=== PATIENT | female | born 1990 | race African-American/Black ===

== ENCOUNTER 2016-12-02 05:01 | Inpatient (IN) | payer MEDICAID ==
[2016-12-01 10:47] LABS: ABSOLUTE LYMPHOCYTES (AUTO) 1.6 10^3/uL (0.5-4.7); ABSOLUTE MONOCYTES (AUTO) 0.7 10^3/uL (0.1-1.4); ABSOLUTE NEUT (AUTO) 5.2 10^3/uL (1.7-8.2); BASOPHILS % (AUTO) 0.5 % (0-2); EOSINOPHILS % (AUTO) 0.7 % (0-6); HEMOGLOBIN 11.2 g/dL (12.0-15.5); HGB HCT DIFFERENCE -0.4; LYMPHOCYTES % (AUTO) 20.8 % (13-45); MEAN CORPUSCULAR HEMOGLOBIN 27.9 pg (27.0-33.4); MEAN CORPUSCULAR HGB CONC 32.9 g/dL (32.0-36.0); MEAN CORPUSCULAR VOLUME 85 fl (80-97); MONOCYTES % (AUTO) 8.9 % (3-13); RED BLOOD COUNT 4.02 10^6/uL (3.72-5.28); RED CELL DISTRIBUTION WIDTH 14.7 % (11.5-14.0); SEGMENTED NEUTROPHILS % (AUTO) 69.1 % (42-78); WHITE BLOOD COUNT 7.5 10^3/uL (4.0-10.5)
[2016-12-01 11:15] LABS: APPEARANCE,URINE CLEAR; BILIRUBIN,URINE NEGATIVE (NEGATIVE); GLUCOSE, URINE NEGATIVE (NEGATIVE); KETONES,URINE NEGATIVE (NEGATIVE); LEUKOCYTE ESTERASE,URINE NEGATIVE (NEGATIVE); NITRITE,URINE NEGATIVE (NEGATIVE); PROTEIN,URINE NEGATIVE (NEGATIVE); URINE SPECIFIC GRAVITY 1.006; UROBILINOGEN,URINE NEGATIVE mg/dL (<2.0)
[2016-12-01 11:47] LABS: URINE BARBITURATES SCREEN NEGATIVE; URINE METHADONE SCREEN NEGATIVE; URINE OPIATES LOW NEGATIVE; URINE PHENCYCLIDINE SCREEN NEGATIVE
[~2016-12-02 05:01] MED LIST: LIDOCAINE 0.5% INJ-PF (5 MG/ML) 50 ML SDV SUBCUT PRN; RINGERS SOLUTION,LACTATED 1,000 ML IV PRN; RINGERS SOLUTION,LACTATED 1,500 ML IV PRN
[2016-12-02] MEDS ORDERED: OXYTOCIN 10 UNIT/ML VIAL ONE (07:41)
[2016-12-02] MEDS ORDERED: KETOROLAC TROMETHAMINE INJ/PF 30 MG/1 ML SDV ONE (07:41)
[2016-12-02] MEDS ORDERED: FENTANYL CITRATE INJ/PF 100 MCG/2 ML AMPUL ONE (07:42)
[2016-12-02] MEDS ORDERED: ACETAMINOPHEN 100 ML IV ONE (07:42)
[2016-12-02] MEDS ORDERED: OXYTOCIN/NORMAL SALINE 20 UNIT/1,000 ML RTUINJ ONE (07:42)
[2016-12-02] MEDS ORDERED: FENTANYL CITRATE INJ/PF 250 MCG/5 ML AMPULE ONE (07:42)
[2016-12-02] MEDS ORDERED: ONDANSETRON HCL INJ/PF 4 MG/2 ML SDV ONE ×2 (07:42→16:31)
[2016-12-02] MEDS ORDERED: MIDAZOLAM 2 MG/2 ML INJ ONE (07:42)
[2016-12-02] MEDS ORDERED: EPHEDRINE SULFATE INJ 50 MG/1 ML AMPULE ONE (07:42)
[2016-12-02] MEDS: CEFAZOLIN 1 GM/D5W RTU 1 GM/50 ML RTUPB IV PRN ×2 (08:00→11:21)
[2016-12-02] MEDS ORDERED: OXYCODONE-ACETAMINOPHEN 5-325 MG TABLET PO PRN ×3 (08:35→11:30)
[2016-12-02] MEDS ORDERED: MORPHINE SULFATE 10 MG/ML INJ IV PRN (08:35)
[2016-12-02] MEDS ORDERED: MEPERIDINE HCL/PF INJ 25 MG/1 ML DISP.SYRIN IV PRN (08:35)
[2016-12-02] MEDS ORDERED: FENTANYL CITRATE INJ/PF 100 MCG/2 ML AMPUL IV PRN ×3 (08:35)
[2016-12-02] MEDS ORDERED: PROMETHAZINE HCL INJ 25 MG/1 ML VIAL IV PRN ×2 (08:35)
[2016-12-02] MEDS ORDERED: ONDANSETRON HCL INJ/PF 4 MG/2 ML SDV IV PRN ×2 (08:35→16:28)
[2016-12-02] MEDS ORDERED: DIPHENHYDRAMINE HCL 50 MG/ML VIAL IV PRN (08:35)
[2016-12-02] MEDS ORDERED: OXYTOCIN/NORMAL SALINE 20 UNIT/1,000 ML RTUINJ INJ PRN (11:29)
[2016-12-02] MEDS ORDERED: RINGERS SOLUTION,LACTATED 1,000 ML IV SCH (11:30)
[2016-12-02] MEDS ORDERED: SIMETHICONE 80 MG TAB.CHEW PO PRN (11:30)
[2016-12-02] MEDS ORDERED: DIPH/PERTUSS(ACELL)/TETANUS VAC/PF 0.5 ML SYR (>=10YO) IM PRN (11:30)
[2016-12-02] MEDS ORDERED: PROMETHAZINE HCL INJ 25 MG/1 ML VIAL IM PRN (11:30)
[2016-12-02] MEDS ORDERED: ACETAMINOPHEN 325 MG TABLET PO PRN (11:30)
[2016-12-02] MEDS ORDERED: MEASLES,MUMPS&RUBELLA VACC/PF 0.5 ML VIAL SUBCUT PRN (11:30)
[2016-12-02] MEDS ORDERED: HYDROMORPHONE HCL INJ/PF 2 MG/ML AMPULE ONE (11:48)
[2016-12-02] MEDS ORDERED: IBUPROFEN 800 MG TABLET PO SCH (12:00)
[2016-12-02] MEDS ORDERED: METHYLERGONOVINE MALEATE INJ/PF 0.2 MG/1 ML AMPULE ONE (12:19)
[2016-12-02] MEDS ORDERED: METHYLERGONOVINE MALEATE INJ/PF 0.2 MG/1 ML AMPULE IM ONE (13:00)
[2016-12-02] MEDS ORDERED: KETOROLAC TROMETHAMINE INJ/PF 30 MG/1 ML SDV IV SCH (14:00)
[2016-12-02] MEDS ORDERED: ACETAMINOPHEN 100 ML IV SCH (14:00)
[2016-12-02] MEDS: HYDROMORPHONE HCL INJ/PF 2 MG/ML AMPULE IV PRN (15:14)
[2016-12-02] MEDS: DOCUSATE SODIUM 100 MG CAPSULE PO SCH (17:25)
[2016-12-02] MEDS: OXYCODONE-ACETAMINOPHEN 5-325 MG TABLET PO PRN (20:22)
[2016-12-03] MEDS: OXYCODONE-ACETAMINOPHEN 5-325 MG TABLET PO PRN ×5 (00:23→20:20)
[2016-12-03] MEDS: HYDROMORPHONE HCL INJ/PF 2 MG/ML AMPULE IV PRN (01:28)
[2016-12-03] MEDS ORDERED: HYDROMORPHONE HCL INJ/PF 2 MG/ML AMPULE INJ ONE (04:45)
[2016-12-03 06:25] LABS: HEMATOCRIT 26.7 % (36.0-47.0); HEMOGLOBIN 8.9 g/dL (12.0-15.5); MEAN CORPUSCULAR HEMOGLOBIN 27.9 pg (27.0-33.4); MEAN CORPUSCULAR HGB CONC 33.3 g/dL (32.0-36.0); MEAN CORPUSCULAR VOLUME 84 fl (80-97); RED BLOOD COUNT 3.19 10^6/uL (3.72-5.28); RED CELL DISTRIBUTION WIDTH 14.9 % (11.5-14.0); WHITE BLOOD COUNT 9.6 10^3/uL (4.0-10.5)
[2016-12-03] MEDS: PRENATAL VITAMIN W-O CA NO5/FE FUMARATE/FA CAPSULE PO SCH (09:08)
[2016-12-03] MEDS: IBUPROFEN 800 MG TABLET PO PRN ×3 (09:08→21:30)
[2016-12-03] MEDS: DOCUSATE SODIUM 100 MG CAPSULE PO SCH ×2 (09:09→17:47)
--- NOTE | 2016-12-03 09:38 | PDOC PROGRESS REPORT ---
Subjective-OB Subjective: Post Delivery Day: 26 year old. Complaining of pain in right calf. Complaining of severe pain in low abdomen. Is burping. No flatus but had relief with Mylicon. Physical Exam (OB) Vital Signs: Temp Pulse Resp BP Pulse Ox 98.0 F 105 H 15 111/66 98 12/03/16 07:28 12/03/16 07:28 12/03/16 07:28 12/03/16 07:28 12/03/16 07:28 Intake & Output 12/02/16 12/03/16 12/04/16 06:59 06:59 06:59 Intake Total 0 Output Total 2600 Balance -2600 Weight 75.75 kg - PIH/Pre-Eclampsia DTR's: 2 + Clonus: Negative Headache: Absent Epigastric Pain: No Visual Changes: No - Dressing Removed: Yes Incision: Open Closure Type: Antonio - Lochia Lochia Amount: Small 10-25 ml Lochia Color: Rubra/Red - Abdomen Description: Tender, Round, Distended Hernia Present: No Bowel Sounds: Normoactive Flatus Presence: Absent Stool: No Fundal Description: Firm, Midline Fundal Height: u/u - u/2 Objective-Diagnostic Laboratory: 12/03/16 06:03 12/03/16 06:03 WBC 9.6 RBC 3.19 L Hgb 8.9 L D Hct 26.7 L MCV 84 MCH 27.9 MCHC 33.3 RDW 14.9 H Plt Count 155
--- NOTE | 2016-12-03 10:39 | RADIOLOGY REPORT (SQ) ---
EXAM DESCRIPTION: VENOUS UNILATERAL LOWER COMPLETED DATE/TIME: 12/03/2016 10:30 am REASON FOR STUDY: LOWER LEFT CALF PAIN O34.219 MATERNAL CARE FOR UNSP TYPE SCAR FROM PREVIOUS PATSY COMPARISON: None. TECHNIQUE: Dynamic and static claudio scale and color images acquired of the right leg venous system. S elected spectral images acquired with additional compression and augmentation maneuvers. The contrala teral common femoral vein and saphenofemoral junction were also imaged. Images stored on PACS. LIMITATIONS: None. FINDINGS: COMMON FEMORAL: Normal phasicity, compression and augmentation. No visualized echogenic ma terial on claudio scale. No defects on color images. FEMORAL: Normal compression and augmentation. No visualized echogenic material on claudio scale. No defe cts on color images. POPLITEAL: Normal compression, augmentation. No visualized echogenic material on claudio scale. No defec ts on color images. CALF VESSELS: Normal compression, augmentation. No visualized echogenic material on claudio scale. No de fects on color images. GSV and SSV: Normal compression, augmentation. No visualized echogenic material on claudio scale. No def ects on color images. ANY DEEP VENOUS INSUFFICIENCY: Not evaluated. ANY EVIDENCE OF POPLITEAL CYST: No. OTHER: No other significant finding. CONTRALATERAL COMMON FEMORAL VEIN AND SAPHENOFEMORAL JUNCTION: Normal phasicity, compression and augmentation. No visualized echogenic material on claudio scale. No de fects on color images. IMPRESSION: NO EVIDENCE DVT OR SVT IN THE RIGHT LEG. TECHNICAL DOCUMENTATION: JOB ID: [id number] [employer]- All Rights Reserved
[2016-12-04] MEDS: OXYCODONE-ACETAMINOPHEN 5-325 MG TABLET PO PRN ×3 (00:23→08:41)
--- NOTE | 2016-12-04 09:02 | PDOC PROGRESS REPORT ---
Subjective-OB Subjective: Post Delivery Day: 26 year old. Denies any needs at this time Doing well, c/o of headache, had one last night relieved with motrin, ready to go home, hsb and baby in room, bottle feeding, pain under contol, scan lochia Physical Exam (OB) Vital Signs: Temp Pulse Resp BP Pulse Ox 98.2 F 103 H 18 114/70 96 12/04/16 03:56 12/04/16 03:56 12/04/16 03:56 12/04/16 03:56 12/04/16 03:56 Intake & Output 12/03/16 12/04/16 12/05/16 06:59 06:59 06:59 Intake Total 0 360 Output Total 2600 Balance -2600 360 - PIH/Pre-Eclampsia DTR's: 2 + Clonus: Negative Headache: Absent Epigastric Pain: No Visual Changes: No - Dressing Removed: Yes Incision: Open Closure Type: [place] - Lochia Lochia Amount: Small 10-25 ml Lochia Color: Rubra/Red - Abdomen Description: Tender, Soft, Round Hernia Present: No Fundal Description: Firm, Midline Fundal Height: u/u - u/2 Objective-Diagnostic Laboratory: 12/03/16 06:03 Assessment and Plan(PN) - Assessment and Plan (1) Anemia due to blood loss, acute Is this a current diagnosis for this admission?: Yes (2) Undesired fertility Is this a current diagnosis for this admission?: Yes - Time Spent with Patient Time with patient: Less than 15 minutes Medications reviewed and adjusted accordingly: Yes - Disposition Anticipated Discharge: Home Within: Other - home today
[2016-12-04] MEDS: PRENATAL VITAMIN W-O CA NO5/FE FUMARATE/FA CAPSULE PO SCH (09:06)
[2016-12-04] MEDS: DOCUSATE SODIUM 100 MG CAPSULE PO SCH (09:06)
--- NOTE | 2016-12-04 09:06 | PDOC DISCHARGE SUMMARY ---
Final Diagnosis Discharge Date: 12/04/16 - Final Diagnosis (1) Anemia due to blood loss, acute Is this a current diagnosis for this admission?: Yes (2) Undesired fertility Is this a current diagnosis for this admission?: Yes (3) Delivery by elective caesarean section Is this a current diagnosis for this admission?: Yes Discharge Data - Discharge Medication Home Medications: Pnv95/Ferrous Fumarate/FA [ Formula Tablet] 1 tab PO DAILY 12/01/16 Ibuprofen [Motrin 800 mg Tablet] 800 mg PO Q6HP PRN #60 tablet 12/04/16 Oxycodone HCl/Acetaminophen [Percocet 5-325 mg Tablet] 1 tab PO Q4HP PRN #30 tablet 12/04/16 Reason(s) for Admission: Ceasarean Section-Repeat, Tubal Ligation Procedures: NST Intrapartum Procedure(s): : Low Cervical, Transverse - [place] Data Baby 1 Male Home with Mother: Yes Complications: No - Diagnosis Test Laboratory: Temp Pulse Resp BP Pulse Ox 98.2 F 103 H 18 114/70 96 12/04/16 03:56 12/04/16 03:56 12/04/16 03:56 12/04/16 03:56 12/04/16 03:56 12/01/16 12/01/16 12/03/16 08:20 09:08 06:03 RBC 4.02 3.19 L Hgb 11.2 L 8.9 L D Hct 34.0 L 26.7 L Urine Opiates Screen NEGATIVE - Discharge information/Instructions Discharge Activity: Activity As Tolerated, No Lifting Over 10 Pounds, No Lifting /Push/Pulling, Pelvic Rest Discharge Diet: As Tolerated, Regular Disposition: HOME, SELF-CARE Follow up with: [facility] in: 1, Weeks
[2016-12-04] MEDS: IBUPROFEN 800 MG TABLET PO PRN (09:07)
[2016-12-04 10:50] VITALS: BP 108/64
--- NOTE | 2017-01-12 10:28 | OPERATIVE REPORT E ---
Operative Report NAME: TAMAR NUNEZ : 1990 AGE: 26Y DATE OF SURGERY: 12/02/2016 ROOM: 222 PREOPERATIVE DIAGNOSES: 1. A 39-week intrauterine . 2. History of section, for repeat. 3. Patient desiring permanent sterilization. POSTOPERATIVE DIAGNOSES: 1. A 39-week intrauterine . 2. History of section, for repeat. 3. Patient desiring permanent sterilization. PROCEDURE: 1. Repeat low-transverse section. 2. Bilateral tubal ligation using Filshie clips. SURGEON: Brock Schmidt D.O. STUDENT FINANCIAL AID MANAGER: None. ANESTHESIA: Spinal. COMPLICATIONS: None. PATHOLOGY: Placenta. ESTIMATED BLOOD LOSS: 600 mL. FINDINGS: 1. Viable male at 8:14 a.m. on 12/02/2016, Apgars 8 at one and 9 at five. 2. Normal-appearing bilateral fallopian tubes and ovaries. PROCEDURE: The patient was taken to the operating room where spinal anesthesia was administered. Once this was done she was placed in a dorsal supine position with a leftward tilt upon the operating room table. She was then prepped and draped in a normal sterile fashion. A scalpel was then used to make a Pfannenstiel skin incision. The skin incision was carried down through subcutaneous tissue to the layer of the fascia. The fascia was then incised in the midline. The fascial incision was extended using the Bovie cautery. The superior fascial edge was grasped with Estrella clamps and elevated and the rectus muscles dissected off sharply and bluntly. Attention was then turned to the inferior fascial edge which was grasped with Estrella clamps, elevated, and the rectus muscles dissected off sharply and bluntly. Rectus muscles were then in the midline, peritoneum identified and entered bluntly with the surgeon's hands. A bladder blade was inserted. A scalpel was then used to make a low-transverse hysterotomy incision. The infant was delivered in the cephalic position through this incision without difficulty and atraumatically. The nose and mouth were suctioned, the cord was clamped and cut, and the infant was handed off to the awaiting pediatricians. Cord blood was obtained. The placenta was then manually removed from the uterus. The uterus was then exteriorized and cleared of all clots and debris. The hysterotomy incision was then reapproximated using 2 layers of 1-0 Vicryl in a running, locking fashion. Following closure of the second layer excellent hemostasis was noted. The uterus was then returned to the abdomen. Again, the hysterotomy incision was reinspected and found to have excellent hemostasis. Rectus muscles were then reapproximated using 1-0 Vicryl interrupted sutures. The fascia was then closed using 1-0 Vicryl in a running, nonlocking fashion. The subcutaneous space was then made hemostatic using Bovie cautery. The skin was then closed with absorbable evin, covered with an OpSite and then with a pressure dressing. At this point in time the procedure was terminated. All sponge, lap and needle counts were correct x2. The patient tolerated the procedure well. The patient was taken to the recovery room in stable condition. DICTATING PHYSICIAN: Brock Schmidt DO [id number] PHY#: [id number] ID: [id number] JOB#: [id number] ACCT: [id number] cc:Brock Schmidt D.O. >
--- NOTE | 2017-01-26 18:32 | OPERATIVE REPORT E ---
Operative Report NAME: TAMAR NUNEZ : 1990 AGE: 26Y DATE OF SURGERY: 12/02/2016 ROOM: 222 PREOPERATIVE DIAGNOSES: 1. A 39-week intrauterine . 2. History of section, for repeat. 3. Patient desiring permanent sterilization. POSTOPERATIVE DIAGNOSES: 1. A 38-week intrauterine . 2. History of section, for repeat. 3. Patient desiring permanent sterilization. SURGEON: Brock Schmidt D.O. VEHICLE OPERATOR: None. PROCEDURE: 1. Repeat low-transverse section. 2. Bilateral tubal ligation using Filshie clips. ANESTHESIA: Spinal. COMPLICATIONS: None. PATHOLOGY: Placenta. ESTIMATED BLOOD LOSS: 600 mL. FINDINGS: 1. A viable male at 8:14 a.m. on 12/02/2016; Apgars 8 at one, 9 at five. 2. Normal-appearing bilateral fallopian tubes and ovaries. PROCEDURE: The patient was taken to the operating room where spinal anesthesia was administered. Once this was done, she was placed in a dorsal supine position with a leftward tilt upon the operating room table. She was then prepped and draped in the normal sterile fashion. A scalpel was then used to make a Pfannenstiel skin incision. The skin incision was carried down through subcutaneous tissues to the layer of the fascia. The fascia was then incised at midline and the fascial incision was then extended bilaterally using the Bovie cautery. The superior fascial edge was grasped with Estrella clamps, elevated, and the rectus muscles dissected off sharply and bluntly. Attention was then turned to the inferior fascial edge, which was grasped with Estrella clamps, elevated, and the rectus muscles dissected off sharply and bluntly. The rectus muscles were then in the midline, peritoneum identified, and entered bluntly with the surgeon's hands. A bladder blade was inserted. A scalpel was then used to make a low transverse hysterotomy incision. The infant was found to be in the cephalic position, and delivered through this incision in the cephalic position without difficulty and atraumatically. The nose and mouth were suctioned. The cord was clamped and cut. The was handed off to the awaiting nurses. The placenta was then manually removed from the uterus. The uterus was exteriorized and cleared of all clots and debris. The hysterotomy incision was then reapproximated using 2 layers of 1-0 Vicryl in a running locking fashion, following closely with a second layer. Excellent hemostasis was noted. At this point in time, a bilateral tubal ligation was performed. A Filshie clip was placed in the midportion on each fallopian tube without difficulty. The uterus was then returned to the abdomen. Again the hysterotomy incision was reinspected and found to have excellent hemostasis. The rectus muscles were then reapproximated using 1-0 Vicryl interrupted sutures. The fascia was then closed using 1-0 Vicryl in a running, non-locking fashion. The subcutaneous space was made hemostatic using Bovie cautery. The skin was then closed with absorbable evin, covered with an OpSite, and then with a pressure dressing. At this point in time, the procedure was terminated. All sponge, lap, and needle counts were correct x2. The patient tolerated the procedure well. The patient was taken to recovery room in stable condition. DICTATING PHYSICIAN: Brock Schmidt DO [id number] PHY#: [id number] ID: [id number] JOB#: [id number] ACCT: [id number] cc:Brock Schmidt D.O. >
== END 2016-12-04 14:35 | disposition home or self-care (01) | DRG 765 ==
LOC: 2S 05:01
PROVIDERS: ADMIT Obstetrics & Gynecology; ATTEND Obstetrics & Gynecology
PROC: 0UL70CZ Occlusion of Bilateral Fallopian Tubes with Extraluminal Device, Open Approach (ICD-10-PCS; 2016-12-02)
PROC: 10D00Z1 Extraction of Products of Conception, Low, Open Approach (ICD-10-PCS; principal; 2016-12-02 07:45)
DX: O34.211 Maternal care for low transverse scar from previous cesarean delivery (principal); D62 Acute posthemorrhagic anemia; N85.8 Other specified noninflammatory disorders of uterus; O90.81 Anemia of the puerperium; O75.89 Other specified complications of labor and delivery; R10.30 Lower abdominal pain, unspecified; M79.661 Pain in right lower leg; Z3A.39 39 weeks gestation of pregnancy; Z30.2 Encounter for sterilization; Z37.0 Single live birth
CPT/HCPCS: 1961; 36415; 59025; 80307; 81001; 85025; 85027; 86850; 86900; 86901; 93971; 94799; J0131; J0690; J1170; J1885; J2210; J2250; J2405; J2590; J3010; J3490; J7120